=== PATIENT | male | born 1970 | race American Indian/Alaskan Native ===

== ENCOUNTER 2021-09-12 21:06 | Inpatient (IN) | payer SELFPAY ==
[2021-09-12] MEDS ORDERED: ONDANSETRON 4 MG/2 ML INJ IV ONE (22:07)
[2021-09-12] MEDS ORDERED: MORPHINE 4 MG/1 ML INJ IV ONE (22:08)
[2021-09-12 23:42] LABS: Basophils % (Auto) 0.2 % (0.0-1.8); Hemoglobin 13.6 gm/dl (11.8-15.2); Lymphocytes # (Auto) 1.3 K/mm3 (1.2-5.4); Lymphocytes % (Auto) 8.3 % (13.4-35.0); Mean Corpuscular HGB Conc 32 % (32-34); Mean Corpuscular Volume 84 fl (84-94); Monocytes % (Auto) 5.9 % (0.0-7.3); Platelet Count 221 K/mm3 (140-440); Red Cell Distribution Width 13.7 % (13.2-15.2)
[2021-09-13 00:01] LABS: Hyaline Casts,Urine 1 /LPF; Mucus,Urine FEW /HPF; WBC,Urine < 1.0 /HPF (0.0-6.0)
[2021-09-13 00:06] LABS: Alanine Aminotransferase 31 units/L (7-56); Albumin 4.9 g/dL (3.9-5); BUN/Creatinine Ratio 16; Blood Urea Nitrogen 13 mg/dL (9-20); Calcium 10.1 mg/dL (8.4-10.2); Hemolysis Index 15
[2021-09-13 00:13] LABS: Bilirubin,Urine NEG (Negative); Blood,Urine NEG (Negative); Color,Urine Colorless (Yellow)
[2021-09-13 00:14] LABS: Protein,Urine <15 mg/dL mg/dL (Negative); Urobilinogen,Urine < 2.0 mg/dL (<2.0)
[2021-09-13] MEDS ORDERED: SODIUM CHLORIDE 0.9% 1000 ML 1,000 ML IV ONE (06:26)
--- NOTE | 2021-09-13 06:28 | Emergency Department Report ---
<NAHEED VARGHESE - Last Filed: 09/13/21 09:02> ED N/V/D HPI - General Chief complaint: Abdominal Pain Stated complaint: VOMITING Time Seen by Provider: 09/13/21 06:24 - Related Data Allergies Allergy/AdvReac Type Severity Reaction Status Date / Time No Known Allergies Allergy Unverified 06/02/13 16:22 ED Medical Decision Making - Lab Data Result diagrams: 09/12/21 23:04 09/12/21 23:04 - Medical Decision Making I discussed case with my colleague. I evaluated patient. I reviewed labs. I agree with disposition and treatment. ED Disposition Clinical Impression: DKA (diabetic ketoacidosis), New onset type 2 diabetes mellitus, Hypertension Disposition: ADMITTED INPATIENT Condition: Stable Instructions: Diabetic Ketoacidosis (ED), Diabetes Mellitus Type 2 in Adults (E D), Hypertension (ED) Referrals: PRIMARY CARE, [Primary Care Provider] - 3-5 Days <ROSAURA LEHMAN - Last Filed: 09/13/21 09:18> ED N/V/D HPI - General Source: patient Mode of arrival: Ambulatory Limitations: No Limitations - History of Present Illness Initial comments: 51-year-old male who denies any significant past medical history presents to the ER today with complaints of low abdominal pain, nausea, vomiting and diarrhea. Patient states that symptoms started yesterday. He denies any hematemesis, coffee-ground emesis, melena or hematochezia. He denies any fever or chills. H e reports urinary frequency but no dysuria or hematuria. He denies any apparent ill contacts or recent travel. He denies any fever or chills. He states that his symptoms started after he ate lunch yesterday. He does not recall food tasting or smelling bad at the time. He denies any recent antibiotic use. He denies any similar symptoms in the past. He denies any history of abdominal surgeries. MD complaint: nausea, vomiting, diarrhea, abdominal pain -: days(s) (1) ED Review of Systems ROS: Stated complaint: VOMITING Other details as noted in HPI Comment: All other systems reviewed and negative Constitutional: denies: chills, fever Eyes: denies: eye pain, eye discharge, vision change ENT: denies: ear pain, throat pain Respiratory: denies: cough, shortness of breath, SOB with exertion, SOB at rest, wheezing Cardiovascular: denies: chest pain, palpitations, edema, syncope, paroxysmal nocturnal dyspnea Gastrointestinal: abdominal pain, nausea, vomiting, diarrhea. denies: constipation, hematemesis, melena, hematochezia Genitourinary: denies: urgency, dysuria, frequency, hematuria, discharge, testicular pain, testicular mass Musculoskeletal: denies: back pain, joint swelling, arthralgia Skin: denies: rash, lesions, change in color, change in hair/nails, pruritus Neurological: denies: headache, weakness, paresthesias, abnormal gait, vertigo Psychiatric: denies: anxiety, depression, auditory hallucinations, visual hallucinations, homicidal thoughts, suicidal thoughts Hematological/Lymphatic: denies: easy bleeding, easy bruising, swollen glands ED Past Medical Hx - Past Medical History Hx Diabetes: No - Social History Smoking Status: Former Smoker ED Physical Exam - General Limitations: No Limitations General appearance: alert, in no apparent distress, other (Patient was assessed after receiving meds that was ordered in triage. He reported improvement of his symptoms after medications) - Head Head exam: Present: atraumatic, normocephalic, normal inspection - Eye Eye exam: Present: normal appearance, PERRL, EOMI Pupils: Present: normal accommodation - ENT ENT exam: Present: normal exam, mucous membranes moist - Neck Neck exam: Present: normal inspection, full ROM - Respiratory Respiratory exam: Present: normal lung sounds bilaterally. Absent: respiratory distress, wheezes, rales, rhonchi - Cardiovascular Cardiovascular Exam: Present: regular rate, normal rhythm, normal heart sounds - GI/Abdominal GI/Abdominal exam: Present: soft. Absent: distended, tenderness, guarding, rebound - Neurological Exam Neurological exam: Present: alert, oriented X3, CN II-XII intact, normal gait - Psychiatric Psychiatric exam: Present: normal affect, normal mood - Skin Skin exam: Present: intact ED Course Vital Signs 09/12/21 09/12/21 09/13/21 22:09 23:27 06:48 Temperature 98.3 F 98.3 F Pulse Rate 108 H 110 H Respiratory 16 18 16 Rate Blood Pressure 183/126 161/103 O2 Sat by Pulse 100 98 Oximetry 09/13/21 08:05 Temperature Pulse Rate 110 H Respiratory Rate Blood Pressure 161/103 O2 Sat by Pulse Oximetry ED Medical Decision Making - Lab Data Result diagrams: 09/12/21 23:04 09/12/21 23:04 - Medical Decision Making Patient was seen and evaluated by me after he received IV meds that was ordered for triage protocol. Patient reports improvement of his symptoms after receiving the meds. Abdominal exam shows a soft nontender abdomen. Labs reviewed and shows evaded white count of 16, blood glucose of 490, and anion gap of 32, mild hypokalemia of 3.5, and a CL of 96. Urinalysis was normal. Given these findings on CMP, question patient about his past medical history and patient denied any known history of diabetes. His blood pressure was also noted to be elevated, and he also denies any known history of hypertension. Malcolm PH was added and was 7.263. Findings are concerning for DKA. Patient only now receiving IV fluids; insulin and p.o. potassium ordered as well as clonidine. Patient will be admitted to hospital. Insulin drip ordered. Patient currently resting comfortably in recliner. Results discussed with patient, and the reason for admission discussed with patient. He agreed with plan. Patient currently stable. Discussed case with hospitalist for admission. Critical care attestation.: If time is entered above; I have spent that time in minutes in the direct care of this critically ill patient, excluding procedure time. ED Disposition Is pt being admited?: Yes
[2021-09-13] MEDS ORDERED: INSULIN REGULAR, HUMAN 100 UNITS/1 ML IV ONE (07:26)
[2021-09-13] MEDS ORDERED: cloNIDine 0.1 MG TAB PO ONE (07:26)
[2021-09-13] MEDS ORDERED: POTASSIUM CHLORIDE ER 20 MEQ TAB PO ONE (07:44)
[2021-09-13] MEDS ORDERED: INSULIN REGULAR, HUMAN 100 UNITS in SODIUM CHLORIDE 0.9% 99 ML IV SCH (09:00)
[2021-09-13 10:25] LABS: Blood Urea Nitrogen 15 mg/dL (9-20); Hemolysis Index 14
[2021-09-13 10:51] LABS: BUN/Creatinine Ratio 21
[2021-09-13] MEDS ORDERED: D5W/LACTATED RINGERS 1,000 ML IV ONE (10:58)
[2021-09-13] MEDS ORDERED: MORPHINE 2 MG/1 ML INJ IV PRN (11:58)
[2021-09-13] MEDS ORDERED: ONDANSETRON 4 MG/2 ML INJ IV PRN (11:58)
[2021-09-13] MEDS ORDERED: ACETAMINOPHEN 325 MG TAB PO PRN (11:58)
[2021-09-13] MEDS ORDERED: DEXTROSE 50% IN WATER (25GM) 50 ML SYRINGE IV PRN ×2 (12:03→16:16)
[2021-09-13] MEDS ORDERED: DEXTROSE 10% *Hypoglycemia IV PRN (12:14)
--- NOTE | 2021-09-13 12:24 | History and Physical Report ---
History of Present Illness History of present illness: HPI: 51-year-old male with past medical history of essential hypertension presenting to our facility with complaint of abdominal pain, nausea, vomiting, diarrhea. Patient states that onset of symptoms was yesterday and he had multiple episodes of emesis. He denied any hematemesis, melena, hematochezia. He states that his last meal was lunch yesterday. He does not recall having any bad food or concerns for food poisoning. ROS negative except for stated above ED course: Patient was found to have blood sugar 490, anion gap 32, hypokalemia 3.5, chloride 96. Urinalysis only revealed trace ketonuria and glucosuria. VBG pH 7.263. Patient was initiated on IV fluids, IV insulin and potassium replacement. Patient states that he does not take any medication for his high blood pressure. Moreover he does not know that he has diabetes. He has never taken medication for his diabetes. He does not follow with a primary care doctor. Patient will be admitted to the ICU for diabetic ketoacidosis PMHx: Essential hypertension PSHx: Denies FHx: Reviewed noncontributory SHx: Tobacco use-former smoker ETOH Use- Recreational Drug Use-denies Lives with uncle PCP-no PCP Medications and Allergies Allergies Allergy/AdvReac Type Severity Reaction Status Date / Time No Known Allergies Allergy Unverified 06/02/13 16:22 Active Meds: Active Medications Acetaminophen (Acetaminophen 325 Mg Tab) 650 mg PO Q6H PRN PRN Reason: Pain MILD(1-3)/Fever >100.5/HILTON Dextrose (Dextrose 50% In Water (25gm) 50 Ml Syringe) 0 ml IV Q30MIN PRN; Protocol PRN Reason: Hypoglycemia Insulin Human Regular 100 (units/ Sodium Chloride) 100 mls @ 7 mls/hr IV TITR CHAGO; Protocol Last Admin: 09/13/21 09:46 Dose: 7 units/hr, 7 mls/hr Labetalol HCl (Labetalol 20 Mg/4 Ml Inj) 10 mg IV Q4HR PRN PRN Reason: sbp> 160 Morphine Sulfate (Morphine 2 Mg/1 Ml Inj) 2 mg IV Q4H PRN PRN Reason: Pain, Moderate (4-6) Ondansetron HCl (Ondansetron 4 Mg/2 Ml Inj) 4 mg IV Q8H PRN PRN Reason: Nausea And Vomiting Sodium Chloride (Sodium Chloride 0.9% 10 Ml Flush Syringe) 10 ml IV BID CHAGO Sodium Chloride (Sodium Chloride 0.9% 10 Ml Flush Syringe) 10 ml IV PRN PRN PRN Reason: LINE FLUSH Review of Systems All systems: negative (For stated in HPI) Exam - Physical Exam Narrative exam: Physical Exam: VITAL SIGNS: Reviewed. GENERAL: The patient appears normally developed, Vital signs as documented. in mild distress, very weak HEAD: No signs of head trauma. EYES: Pupils are equal. Extraocular motions intact. EARS: Hearing grossly intact. MOUTH: Oropharynx is normal. NECK: No adenopathy, no JVD. CHEST: Chest with clear breath sounds bilaterally. No wheezes, rales, or rhonchi. CARDIAC: Regular rate and rhythm. S1 and S2, without murmurs, gallops, or rubs. VASCULAR: No Edema. Peripheral pulses normal and equal in all extremities. ABDOMEN: Soft, non tender and non distended. No rebound or guarding, and no masses palpated. Bowel Sounds normal. MUSCULOSKELETAL: Good range of motion of all major joints. Extremities without clubbing, cyanosis or edema. NEUROLOGIC EXAM: Alert and oriented x 4. no focal sensory or strength deficits. PSYCHIATRIC: Mood normal. SKIN: left leg/foot wound. detail exam as documented in skin assessment - Constitutional Vitals: Temp Pulse Resp BP Pulse Ox 98.3 F 124 H 18 146/105 100 09/13/21 06:48 09/13/21 10:45 09/13/21 10:45 09/13/21 10:45 09/13/21 10:45 Results - Labs CBC & Chem 7: 09/12/21 23:04 09/13/21 09:08 Labs: Laboratory Last Values WBC 16.3 K/mm3 (4.5-11.0) H 09/12/21 23:04 RBC 5.10 M/mm3 (3.65-5.03) H 09/12/21 23:04 Hgb 13.6 gm/dl (11.8-15.2) 09/12/21 23:04 Hct 43.0 % (35.5-45.6) 09/12/21 23:04 MCV 84 fl (84-94) 09/12/21 23:04 MCH 27 pg (28-32) L 09/12/21 23:04 MCHC 32 % (32-34) 09/12/21 23:04 RDW 13.7 % (13.2-15.2) 09/12/21 23:04 Plt Count 221 K/mm3 (140-440) 09/12/21 23:04 Lymph % (Auto) 8.3 % (13.4-35.0) L 09/12/21 23:04 [place] % (Auto) 5.9 % (0.0-7.3) 09/12/21 23:04 Eos % (Auto) 0.0 % (0.0-4.3) 09/12/21 23:04 Baso % (Auto) 0.2 % (0.0-1.8) 09/12/21 23:04 Lymph # (Auto) 1.3 K/mm3 (1.2-5.4) 09/12/21 23:04 [place] # (Auto) 1.0 K/mm3 (0.0-0.8) H 09/12/21 23:04 Eos # (Auto) 0.0 K/mm3 (0.0-0.4) 09/12/21 23:04 Baso # (Auto) 0.0 K/mm3 (0.0-0.1) 09/12/21 23:04 Seg Neutrophils % 85.6 % (40.0-70.0) H 09/12/21 23:04 Seg Neutrophils # 14.0 K/mm3 (1.8-7.7) H 09/12/21 23:04 VBG pH 7.263 (7.320-7.420) L 09/13/21 06:51 Sodium 141 mmol/L (137-145) 09/13/21 09:08 Potassium 3.7 mmol/L (3.6-5.0) 09/13/21 09:08 Chloride 104.3 mmol/L (98-107) 09/13/21 09:08 Carbon Dioxide 16 mmol/L (22-30) L 09/13/21 09:08 Anion Gap 24 mmol/L 09/13/21 09:08 BUN 15 mg/dL (9-20) 09/13/21 09:08 Creatinine 0.7 mg/dL (0.8-1.3) L 09/13/21 09:08 Estimated GFR > 60 ml/min 09/13/21 09:08 BUN/Creatinine Ratio 21 % 09/13/21 09:08 Glucose 322 mg/dL (75-100) H 09/13/21 09:08 Calcium 10.0 mg/dL (8.4-10.2) 09/13/21 09:08 Phosphorus 4.20 mg/dL (2.5-4.5) 09/13/21 09:08 Total Bilirubin 0.80 mg/dL (0.1-1.2) 09/12/21 23:04 AST 25 units/L (5-40) 09/12/21 23:04 ALT 31 units/L (7-56) 09/12/21 23:04 Alkaline Phosphatase 107 units/L (35-129) 09/12/21 23:04 Total Protein 8.5 g/dL (6.3-8.2) H 09/12/21 23:04 Albumin 4.9 g/dL (3.9-5) 09/12/21 23:04 Albumin/Globulin Ratio 1.4 % 09/12/21 23:04 Lipase 8 units/L (13-60) L 09/12/21 23:04 Urine Color Colorless (Yellow) 09/12/21 23:11 Urine Turbidity Clear (Clear) 09/12/21 23:11 Urine pH 7.0 (5.0-7.0) 09/12/21 23:11 Ur Specific [place] 1.010 (1.003-1.030) 09/12/21 23:11 Urine Protein <15 mg/dl mg/dL (Negative) 09/12/21 23:11 Urine Glucose (UA) Trace mg/dL (Negative) 09/12/21 23:11 Urine Ketones Trace mg/dL (Negative) 09/12/21 23:11 Urine Blood Neg (Negative) 09/12/21 23:11 Urine Nitrite Neg (Negative) 09/12/21 23:11 Ur Reducing Substances Not Reportable 09/12/21 23:11 Urine Bilirubin Neg (Negative) 09/12/21 23:11 Urine Ictotest Not Reportable 09/12/21 23:11 Urine Urobilinogen < 2.0 mg/dL (<2.0) 09/12/21 23:11 Ur Leukocyte Esterase Neg (Negative) 09/12/21 23:11 Urine WBC (Auto) < 1.0 /HPF (0.0-6.0) 09/12/21 23:11 Urine RBC (Auto) 1.0 /HPF (0.0-6.0) 09/12/21 23:11 U Epithel Cells (Auto) < 1.0 /HPF (0-13.0) 09/12/21 23:11 Hyaline Casts 1 /LPF 09/12/21 23:11 Urine Mucus Few /HPF 09/12/21 23:11 Assessment and Plan Assessment and plan: #Diabetic Ketoacidosis - A on admission, BG in 491 trace glucosuria, trace ketonuria, VB.26, bicarb 16 - 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 - DKA protocol: IV insulin, IVF. - NPO until AG closes. - once calculated AG closed (< 14), can start lantus 10 mg subq. Please run insulin gtt 1hr after lantus admin. Can initiate diabetic diet as well - accuchecks q1 hr until AG closed - BMP q4hr until AG closed #Type 2 diabetes with hyperglycemia - hemoglobin a1c ordered - will need to be transitioned to subcutaneous insulin once AG closed - diabetic education - mathematician consultation placed #Essential hypertension - labetalol 10 mg q4hr prn sbp >160 while npo - will start lisinopril when patient can tolerate po #Medical noncompliance - denies taking medication for HTN, did not know he has diabetes, not on medication for this - diabetic education, behavioral health counseling administered at bedside +15 min #Chronic heel wound - appears to chronic foot/heel wound. - will need wound care. - PT eval The high probability of a clinically significant, sudden or life threatening deterioration of the [endo, cardiac] system(s) required my full and direct attention, intervention and personal management. The aggregate critical care time was [60] minutes. This time is in addition to time spent performing reported procedures but includes the following: [x] Data Review and interpretation [x] Patient assessment and monitoring of vital signs [x] Documentation [x] Medication orders and management
[2021-09-13 14:29] LABS: Blood Urea Nitrogen 14 mg/dL (9-20); Calcium 10.4 mg/dL (8.4-10.2); Hemolysis Index 4
[2021-09-13 14:32] LABS: BUN/Creatinine Ratio 20
[2021-09-13 16:47] LABS: Blood Urea Nitrogen 14 mg/dL (9-20); Calcium 9.5 mg/dL (8.4-10.2); Hemolysis Index 21
[2021-09-13 16:48] LABS: BUN/Creatinine Ratio 23
[2021-09-13 19:45] LABS: Blood Urea Nitrogen 13 mg/dL (9-20); Calcium 10.1 mg/dL (8.4-10.2); Hemolysis Index 3
[2021-09-13 19:46] LABS: BUN/Creatinine Ratio 22
[2021-09-13] MEDS ORDERED: INSULIN GLARGINE 100 UNITS/ML SUB-Q SCH (22:00)
[2021-09-13] MEDS: INSULIN LISPRO 100 UNIT/ML SUB-Q SCH ×2 (22:28→23:44)
[2021-09-13 22:42] LABS: Blood Urea Nitrogen 12 mg/dL (9-20); Calcium 10.4 mg/dL (8.4-10.2); Hemolysis Index 6
[2021-09-13 22:43] LABS: BUN/Creatinine Ratio 24
[2021-09-14 06:42] LABS: Blood Urea Nitrogen 14 mg/dL (9-20); Calcium 9.9 mg/dL (8.4-10.2); Hemolysis Index 1
[2021-09-14 06:53] LABS: BUN/Creatinine Ratio 23
--- NOTE | 2021-09-14 07:38 | Progress Note ---
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 - DKA protocol: IV insulin, IVF. - NPO until AG closes. - once calculated AG closed (< 14), can start lantus 10 mg subq. Please run insulin gtt 1hr after lantus admin. Can initiate diabetic diet as well - accuchecks q1 hr until AG closed - BMP q4hr until AG closed #Type 2 diabetes with hyperglycemia - hemoglobin a1c ordered - will need to be transitioned to subcutaneous insulin once AG closed - diabetic education - per diem physical therapist assistant consultation placed #Essential hypertension - labetalol 10 mg q4hr prn sbp >160 while npo - will start lisinopril when patient can tolerate po #Medical noncompliance - denies taking medication for HTN, did not know he has diabetes, not on medication for this - diabetic education, behavioral health counseling administered at bedside +15 min #Chronic heel wound - appears to chronic foot/heel wound. - will need wound care. - PT eval The high probability of a clinically significant, sudden or life threatening deterioration of the [endo, cardiac] system(s) required my full and direct attention, intervention and personal management. The aggregate critical care time was [60] minutes. This time is in addition to time spent performing reported procedures but includes the following: [x] Data Review and interpretation [x] Patient assessment and monitoring of vital signs [x] Documentation [x] Medication orders and management Hospitalist Physical - Physical exam Narrative exam: Physical Exam: VITAL SIGNS: Reviewed. GENERAL: The patient appears normally developed, Vital signs as documented. in mild distress, very weak HEAD: No signs of head trauma. EYES: Pupils are equal. Extraocular motions intact. EARS: Hearing grossly intact. MOUTH: Oropharynx is normal. NECK: No adenopathy, no JVD. CHEST: Chest with clear breath sounds bilaterally. No wheezes, rales, or rhonchi. CARDIAC: Regular rate and rhythm. S1 and S2, without murmurs, gallops, or rubs. VASCULAR: No Edema. Peripheral pulses normal and equal in all extremities. ABDOMEN: Soft, non tender and non distended. No rebound or guarding, and no masses palpated. Bowel Sounds normal. MUSCULOSKELETAL: Good range of motion of all major joints. Extremities without clubbing, cyanosis or edema. NEUROLOGIC EXAM: Alert and oriented x 4. no focal sensory or strength deficits. PSYCHIATRIC: Mood normal. SKIN: left leg/foot wound. detail exam as documented in skin assessment - Constitutional Vitals: Temp Pulse Resp BP Pulse Ox 98.9 F 117 H 18 138/82 97 09/14/21 03:40 09/14/21 03:40 09/14/21 03:40 09/14/21 03:58 09/14/21 06:00 Results - Labs CBC & Chem 7: 09/12/21 23:04 09/14/21 06:01 Labs: Laboratory Last Values WBC 16.3 K/mm3 (4.5-11.0) H 09/12/21 23:04 RBC 5.10 M/mm3 (3.65-5.03) H 09/12/21 23:04 Hgb 13.6 gm/dl (11.8-15.2) 09/12/21 23:04 Hct 43.0 % (35.5-45.6) 09/12/21 23:04 MCV 84 fl (84-94) 09/12/21 23:04 MCH 27 pg (28-32) L 09/12/21 23:04 MCHC 32 % (32-34) 09/12/21 23:04 RDW 13.7 % (13.2-15.2) 09/12/21 23:04 Plt Count 221 K/mm3 (140-440) 09/12/21 23:04 Lymph % (Auto) 8.3 % (13.4-35.0) L 09/12/21 23:04 [place] % (Auto) 5.9 % (0.0-7.3) 09/12/21 23:04 Eos % (Auto) 0.0 % (0.0-4.3) 09/12/21 23:04 Baso % (Auto) 0.2 % (0.0-1.8) 09/12/21 23:04 Lymph # (Auto) 1.3 K/mm3 (1.2-5.4) 09/12/21 23:04 [place] # (Auto) 1.0 K/mm3 (0.0-0.8) H 03/23/22 23:04 Eos # (Auto) 0.0 K/mm3 (0.0-0.4) 09/12/21 23:04 Baso # (Auto) 0.0 K/mm3 (0.0-0.1) 09/12/21 23:04 Seg Neutrophils % 85.6 % (40.0-70.0) H 09/12/21 23:04 Seg Neutrophils # 14.0 K/mm3 (1.8-7.7) H 09/12/21 23:04 VBG pH 7.263 (7.320-7.420) L 09/13/21 06:51 Sodium 137 mmol/L (137-145) 09/14/21 06:01 Potassium 3.6 mmol/L (3.6-5.0) 09/14/21 06:01 Chloride 95.6 mmol/L (98-107) L 09/14/21 06:01 Carbon Dioxide 18 mmol/L (22-30) L 09/14/21 06:01 Anion Gap 27 mmol/L 09/14/21 06:01 BUN 14 mg/dL (9-20) 09/14/21 06:01 Creatinine 0.6 mg/dL (0.8-1.3) L 09/14/21 06:01 Estimated GFR > 60 ml/min 09/14/21 06:01 BUN/Creatinine Ratio 23 % 09/14/21 06:01 Glucose 285 mg/dL (75-100) H 09/14/21 06:01 POC Glucose 212 mg/dL (70-105) H 09/13/21 21:07 Hemoglobin A1c 15.3 % (4-6) H 09/13/21 13:52 Calcium 9.9 mg/dL (8.4-10.2) 09/14/21 06:01 Phosphorus 1.20 mg/dL (2.5-4.5) L D 09/13/21 13:52 Magnesium 1.80 mg/dL (1.7-2.3) 09/13/21 13:52 Total Bilirubin 0.80 mg/dL (0.1-1.2) 09/12/21 23:04 AST 25 units/L (5-40) 09/12/21 23:04 ALT 31 units/L (7-56) 09/12/21 23:04 Alkaline Phosphatase 107 units/L (35-129) 09/12/21 23:04 Total Protein 8.5 g/dL (6.3-8.2) H 09/12/21 23:04 Albumin 4.9 g/dL (3.9-5) 09/12/21 23:04 Albumin/Globulin Ratio 1.4 % 09/12/21 23:04 Lipase 8 units/L (13-60) L 09/12/21 23:04 Urine Color Colorless (Yellow) 09/12/21 23:11 Urine Turbidity Clear (Clear) 09/12/21 23:11 Urine pH 7.0 (5.0-7.0) 09/12/21 23:11 Ur Specific [place] 1.010 (1.003-1.030) 09/12/21 23:11 Urine Protein <15 mg/dl mg/dL (Negative) 09/12/21 23:11 Urine Glucose (UA) Trace mg/dL (Negative) 09/12/21 23:11 Urine Ketones Trace mg/dL (Negative) 09/12/21 23:11 Urine Blood Neg (Negative) 09/12/21 23:11 Urine Nitrite Neg (Negative) 09/12/21 23:11 Ur Reducing Substances Not Reportable 09/12/21 23:11 Urine Bilirubin Neg (Negative) 09/12/21 23:11 Urine Ictotest Not Reportable 09/12/21 23:11 Urine Urobilinogen < 2.0 mg/dL (<2.0) 09/12/21 23:11 Ur Leukocyte Esterase Neg (Negative) 09/12/21 23:11 Urine WBC (Auto) < 1.0 /HPF (0.0-6.0) 09/12/21 23:11 Urine RBC (Auto) 1.0 /HPF (0.0-6.0) 09/12/21 23:11 U Epithel Cells (Auto) < 1.0 /HPF (0-13.0) 09/12/21 23:11 Hyaline Casts 1 /LPF 09/12/21 23:11 Urine Mucus Few /HPF 09/12/21 23:11 Active Medications - Current Medications Current Medications: Generic Name Dose Route Start Last Admin Trade Name Freq PRN Reason Stop Dose Admin Acetaminophen 650 mg 09/13/21 11:58 Acetaminophen 325 Mg Tab PO Q6H PRN Pain MILD(1-3)/Fever >100.5/[place]IL[place] Dextrose 0 ml 09/13/21 12:14 Dextrose 10% *Hypoglycemia IV PRN PRN Hypoglycemia Dextrose 50 ml 09/13/21 16:16 Dextrose 50% In Water (25gm) 50 Ml Syringe IV Q30MIN PRN Hypoglycemia Protocol Insulin Glargine 10 units 09/13/21 22:00 09/13/21 23:45 Insulin Glargine 100 Units/Ml SUB-Q 10 units QHS CHAGO Administration Insulin Human Lispro 0 unit 09/13/21 16:30 09/13/21 23:44 Insulin Lispro 100 Unit/Ml SUB-Q 3 unit ACHS [facility] Administration Protocol Insulin Human Regular 15 units 09/14/21 07:37 Insulin Regular, Human 100 Units/1 Ml SUB-Q 09/14/21 07:38 ONCE ONE Insulin Human Regular 5 units 09/14/21 11:30 Insulin Regular, Human 100 Units/1 Ml SUB-Q ACHS [facility] Labetalol HCl 10 mg 09/13/21 12:06 09/13/21 21:14 Labetalol 20 Mg/4 Ml Inj IV 10 mg Q4HR PRN Administration sbp> 160 Morphine Sulfate 2 mg 09/13/21 11:58 Morphine 2 Mg/1 Ml Inj IV Q4H PRN Pain, Moderate (4-6) Ondansetron HCl 4 mg 09/13/21 11:58 09/13/21 22:08 Ondansetron 4 Mg/2 Ml Inj IV 4 mg Q8H PRN Administration Nausea And Vomiting Sodium Chloride 10 ml 09/13/21 12:00 09/13/21 22:37 Sodium Chloride 0.9% 10 Ml Flush Syringe IV Not Given BID CHAGO Sodium Chloride 10 ml 09/13/21 11:58 Sodium Chloride 0.9% 10 Ml Flush Syringe IV PRN PRN LINE FLUSH Nutrition/Malnutrition Assess - Dietary Evaluation Nutrition/Malnutrition Findings: Nutrition Notes Start: 09/13/21 17:36 Freq: Status: Active Protocol: Document 09/13/21 17:36 JOON (Rec: 09/13/21 17:42 JOON [email or web address]) Nutrition Notes Need for Assessment generated from: MD Order,Education Initial or Follow up Brief Note Current Diagnosis Diabetes,Hypertension Other Pertinent Diagnosis DKA, Heel/Foot Wound. Current Diet Consistent Carbohydrates Diet (since B 09/13). Height 5 ft 9 in Weight 72.575 kg [place] Body Weight (kg) 72.72 BMI 23.6 Weight change and time frame None provided at admission. Weight Status Appropriate Subjective/Other Information RD consult for Nutrition Education. No reports available on Pt's PO intake of meals at the time , will assess ataaaaaaF/U. Pt still in critical condition , not a candidate for Nutrition Education at the time, will assess feasibility on F/U. Percent of energy/protein needs met: Prescribed Consistent Carbohydrates Diet provides for energy/protein needs (2, 061 Kcal/91 g) during LOS. Nutrition Intervention Follow-Up By: 09/20/21 Additional Comments Nutrition education will be provided on F/U, if feasible. Continue monitoring food tolerance, %PO intake of meals , and BM.
[2021-09-14] MEDS ORDERED: INSULIN REGULAR, HUMAN 100 UNITS/1 ML SUB-Q NR (08:00)
[2021-09-14] MEDS: INSULIN LISPRO 100 UNIT/ML SUB-Q SCH ×2 (09:06→13:01)
[2021-09-14] MEDS ORDERED: amLODIPine 10 MG TAB PO SCH (10:00)
[2021-09-14] MEDS ORDERED: LISINOPRIL 40 MG TAB PO SCH (10:00)
[2021-09-14] MEDS ORDERED: INSULIN REGULAR, HUMAN 100 UNITS/1 ML SUB-Q SCH (11:30)
[2021-09-14 13:06] VITALS: BP 104/78
[2021-09-14 13:13] LABS: Blood Urea Nitrogen 19 mg/dL (9-20); Calcium 10.2 mg/dL (8.4-10.2); Hemolysis Index 25
[2021-09-14 13:28] LABS: BUN/Creatinine Ratio 32
--- NOTE | 2021-09-14 13:45 | Discharge Summary ---
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 Patient states that onset of symptoms was yesterday and he had multiple episodes of emesis. He denied any hematemesis, melena, hematochezia. He states that his last meal was lunch yesterday. He does not recall having any bad food or concerns for food poisoning. ROS negative except for stated above ED course: Patient was found to have blood sugar 490, anion gap 32, hypokalemia 3.5, chloride 96. Urinalysis only revealed trace ketonuria and glucosuria. VBG pH 7.263. Patient was initiated on IV fluids, IV insulin and potassium replacement. Patient states that he does not take any medication for his high blood pressure. Moreover he does not know that he has diabetes. He has never taken medication for his diabetes. He does not follow with a primary care doctor. Patient will be admitted to the ICU for diabetic ketoacidosis. Hospital Course: Admitted for diabetic ketoacidosis. Patinet treated with IV insulin, IVF. AG closed at the time of d/c and paitent asymptomatic. A1c 15.3 consistent with patient not knowing he has diabetes. Will discharge patient with NPH 20 Units subq bid, metformin 1000 mg po bid, lisinopril 40 mg po daily, amlodipine 10 mg po daily, and diabetic supplies. Discharge with OP referral to see PCP, Dr. Forrest information given. He was also advised to follow up with wound care regarding his left foot. 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 - DKA protocol: IV insulin, IVF. - NPO until AG closes. - once calculated AG closed (< 14), can start lantus 10 mg subq. Please run insulin gtt 1hr after lantus admin. Can initiate diabetic diet as well - accuchecks q1 hr until AG closed - BMP q4hr until AG closed #Type 2 diabetes with hyperglycemia - hemoglobin a1c : 15.3 - will need to be transitioned to subcutaneous insulin once AG closed - diabetic education - head cager consultation placed #Essential hypertension - labetalol 10 mg q4hr prn sbp >160 while npo - will start lisinopril when patient can tolerate po #Medical noncompliance - denies taking medication for HTN, did not know he has diabetes, not on medication for this - diabetic education, behavioral health counseling administered at bedside +15 min #Chronic heel wound - appears to chronic foot/heel wound. - will need wound care. - PT eval Disposition: 01 HOME / SELF CARE / HOMELESS Final Discharge Diagnosis (Prints w/discharge instructions): diabetic ketoacidosis Time spent for discharge: 35 Core Measure Documentation - Palliative Care Palliative Care/ Comfort Measures: Not Applicable - Core Measures Any of the following diagnoses?: none Exam - Physical Exam Narrative exam: Physical Exam: VITAL SIGNS: Reviewed. GENERAL: The patient appears normally developed, Vital signs as documented. iNAD HEAD: No signs of head trauma. EYES: Pupils are equal. Extraocular motions intact. EARS: Hearing grossly intact. MOUTH: Oropharynx is normal. NECK: No adenopathy, no JVD. CHEST: Chest with clear breath sounds bilaterally. No wheezes, rales, or rhonchi. CARDIAC: Regular rate and rhythm. S1 and S2, without murmurs, gallops, or rubs. VASCULAR: No Edema. Peripheral pulses normal and equal in all extremities. ABDOMEN: Soft, non tender and non distended. No rebound or guarding, and no masses palpated. Bowel Sounds normal. MUSCULOSKELETAL: Good range of motion of all major joints. Extremities without clubbing, cyanosis or edema. NEUROLOGIC EXAM: Alert and oriented x 4. no focal sensory or strength deficits. PSYCHIATRIC: Mood normal. SKIN: left leg/foot wound. detail exam as documented in skin assessment - Constitutional Vitals: Temp Pulse Resp BP Pulse Ox 98.4 F 130 H 18 104/78 100 09/14/21 12:32 09/14/21 12:32 09/14/21 12:32 09/14/21 12:32 09/14/21 12:32 Plan Diet: diabetic Plan of Treatment: Admitted for diabetic ketoacidosis. Patinet treated with IV insulin, IVF. AG closed at the time of d/c and paitent asymptomatic. A1c 15.3 consistent with patient not knowing he has diabetes. Will discharge patient with NPH 20 Units subq bid, metformin 1000 mg po bid, lisinopril 40 mg po daily, amlodipine 10 mg po daily, and diabetic supplies. Discharge with OP referral to see PCP, Dr. Forrest information given. He was also advised to follow up with wound care regarding his left foot. Follow up with: PRIMARY CARE, [Primary Care Provider] - 3-5 Days HERB FORREST MD [Staff Physician] - 7 Days Prescriptions: amLODIPine 10 mg PO QDAY 30 Days #30 tablet Insulin NPH Hum/Reg Insulin Hm [HumuLIN 70-30 Vial] 20 unit SQ BID 30 Days #3 vial Metformin HCl [metFORMIN] 1,000 mg PO BID 30 Days #30 tab lisinopriL [Zestril TAB] 40 mg PO QDAY 30 Days #30 tablet Other Discharge Orders: Glucometer (Amb) Location: None Selected Glucometer supplies[Amb] Location: None Selected
== END 2021-09-14 15:56 | disposition home or self-care (01) | DRG 639 ==
LOC: ED 21:06 → CC1 09-13 11:58 → 3A 09-13 16:25
PROVIDERS: ADMIT Internal Medicine; ATTEND Internal Medicine
DX: E11.10 Type 2 diabetes mellitus with ketoacidosis without coma (principal); I10 Essential (primary) hypertension; E87.6 Hypokalemia; Z87.891 Personal history of nicotine dependence; Z91.19 Patient's noncompliance with other medical treatment and regimen
CPT/HCPCS: 36415; 80048; 80053; 81001; 82805; 82962; 83036; 83690; 83735; 84100; 85025; G0378; J3490; J7060; Q0162; Q9967; J1815; J2270; J2405; J7030; J7121